=== PATIENT | female | born 1985 | race Hispanic/Latino ===

== ENCOUNTER 2018-06-23 08:38 | Emergency (ER) | payer OTHER ==
[2018-06-23 08:55] VITALS: RESP 16
[2018-06-23 09:36] LABS: SQUAMOUS EPITHIAL 8 /hpf (0-5); URINE BILIRUBIN NEGATIVE (NEGATIVE); URINE BLOOD NEGATIVE (NEGATIVE); URINE CLARITY CLOUDY (Clear); URINE COLOR YELLOW (YELLOW); URINE GLUCOSE (UA) NEG (Normal); URINE LEUKOCYTE ESTERASE LARGE Leu/uL (Negative); URINE PROTEIN NEGATIVE (NEGATIVE)
[2018-06-23 09:38] LABS: BASO % 0.6 % (0.0-2.0); EOS # 0.1 K/uL (0.0-0.7); EOS % 1.5 % (0.0-4.0); HEMOGLOBIN 12.2 g/dL (12.0-16.0); LYMPH # 2.3 K/uL (1.0-4.3); MEAN CELL VOLUME 90.5 fl (81.0-99.0); MEAN CORPUSCULAR HEMOGLOBIN 31.3 pg (27.0-31.0); MEAN CORPUSCULAR HGB CONC 34.5 g/dL (33.0-37.0); MEAN PLATELET VOLUME 7.8 fl (7.2-11.7); MONO # 0.5 K/uL (0.0-0.8); MONO % 6.9 % (0.0-10.0); NEUT # 3.8 K/uL (1.8-7.0); NRBC % 0.1 % (0.0-0.0); RBC 3.9 Mil/uL (3.80-5.20); RED CELL DISTRIBUTION WIDTH 13.3 % (11.5-14.5); WHITE BLOOD COUNT 6.7 K/uL (4.8-10.8)
[2018-06-23 09:45] LABS: BLOOD UREA NITROGEN 15 mg/dl (7-17); CALCIUM 9.4 mg/dL (8.4-10.2); GFR AFRICAN-AMERICAN > 60; GFR NON-AFRICAN AMERICAN > 60
--- NOTE | 2018-06-23 09:51 | ED PDOC ---
HPI: Chest Pain Time Seen by Provider: 06/23/18 09:11 Chief Complaint (Nursing): Chest Pain Chief Complaint (Provider): Chest pain History Per: Patient History/Exam Limitations: no limitations Onset/Duration Of Symptoms: Days (1) Current Symptoms Are (Timing): Constant Quality: Aching, "Pain". denies: Sharp Associated Symptoms: denies: Nausea, Dyspnea, Diaphoresis, Syncope Additional History Per: Patient Additional Complaint(s): 33yo female, history of anxiety, current smoker, comes to ER for evaluation of left lower anterior chest pain x 1 day. She states the pain is constant but changes in intensity ranging from mild to painful. Patient reports the pain is worsened with stress and feels as if it is related to her anxiety. She states 2 days ago, she had a bad migraine headache and associated nausea, vomiting and was "stressed" regarding her workload; she reports the chest pain started after the migraine and stress. Otherwise, she denies any shortness of breath, abdominal pain, weakness, headache and offers no additional medical complaints. - Risk Factors PE Risk Factors: Neg: Decreased Mobilty /Activity, Past Medical History Reviewed: Historical Data, Nursing Documentation, Vital Signs Vital Signs: Last Vital Signs Temp 98.0 F 06/23/18 08:51 Pulse 72 06/23/18 09:11 Resp 16 06/23/18 08:51 BP 135/81 06/23/18 09:11 Pulse Ox 100 06/23/18 09:56 - Medical History PMH: Anxiety, Migraine Other PMH: history of morbid obesity - Surgical History Other surgeries: lap-band surgery, gastric bypass - Family History Family History: States: Hypertension Denies: CAD, Diabetes - Social History Current smoker - smoking cessation education provided: Yes Drugs: Denies - Home Medications Home Medications: Ambulatory Orders Medication Instructions Recorded Albuterol 0.083% [Albuterol 0.083% 3 ml IH QID PRN #50 neb 04/02/18 Inhal Rena (2.5 mg/3 ml) UD] Albuterol HFA [Ventolin HFA 90 2 puff IH [id number] PRN #1 in 04/02/18 mcg/actuation (8 g)] Benzonatate [Tessalon Perles] 200 mg PO TID PRN #30 sgl 04/02/18 Loratadine [Claritin] 10 mg PO DAILY PRN #14 tab 04/02/18 Prednisone 50 mg PO DAILY #4 tablet 04/02/18 - Allergies Allergies/Adverse Reactions: Allergies Allergy/AdvReac Type Severity Reaction Status Date / Time Mag Hola Allergy ANAPHYLAXIS Uncoded 04/02/18 09:48 Review of Systems ROS Statement: Except As Marked, All Systems Reviewed And Found Negative Constitutional: Negative for: Fever, Chills Cardiovascular: Positive for: Chest Pain Respiratory: Negative for: Shortness of Breath Gastrointestinal: Negative for: Nausea, Vomiting, Abdominal Pain Neurological: Negative for: Weakness, Headache Physical Exam - Reviewed Nursing Documentation Reviewed: Yes Vital Signs Reviewed: Yes - Physical Exam Appears: Positive for: Non-toxic, No Acute Distress Head Exam: Positive for: ATRAUMATIC, NORMAL INSPECTION, NORMOCEPHALIC Skin: Positive for: Normal Color Eye Exam: Positive for: Normal appearance Neck: Positive for: Painless ROM, Supple Cardiovascular/Chest: Positive for: Regular Rate, Rhythm, Chest Non Tender. Negative for: Tachycardia Respiratory: Positive for: Normal Breath Sounds. Negative for: Respiratory Distress Pulses-Dorsalis Pedis (L): 2+ Pulses-Dorsalis Pedis (R): 2+ Gastrointestinal/Abdominal: Positive for: Normal Exam, Soft. Negative for: Tenderness Back: Positive for: Normal Inspection Extremity: Positive for: Normal ROM. Negative for: Pedal Edema, Calf Tenderness Neurologic/Psych: Positive for: Alert, Oriented. Negative for: Motor/Sensory Deficits - Laboratory Results Result Diagrams: 06/23/18 09:27 06/23/18 09:27 - ECG O2 Sat by Pulse Oximetry: 100 (RA) Pulse Ox Interpretation: Normal Medical Decision Making Medical Decision Making: Impression: Atypical chest pain Plan: -- Labs -- EKG Patient declined a Chest x-ray. Patient also has a scheduled real estate executive assistant appointment at 2PM today. Scribe Attestation: Documented by Miriam Bañuelos, acting as a scribe for Maria Elena Bueno MD. Provider Scribe Attestation: All medical record entries made by the Scribe were at my direction and personally dictated by me. I have reviewed the chart and agree that the record accurately reflects my personal performance of the history, physical exam, medical decision making, and the department course for this patient. I have also personally directed, reviewed, and agree with the discharge instructions and disposition. Labs reviewed. No acute pathology/. EKG normal. Causes of CP d/w patient (ACS, pneumonia, musculoskeletal, injury, stress, anxiety, etc). Patient has a cardiology appointment this afternoon. Will discharge Disposition - Clinical Impression Clinical Impression: Atypical chest pain - Patient ED Disposition Is Patient to be Admitted: No Doctor Will See Patient In The: Office Counseled Patient/Family Regarding: Diagnosis, Need For Followup - Disposition Disposition: Routine/Home Disposition Time: 10:30 Condition: STABLE Instructions: Chest Pain, Chest Pain That Is Not Caused by the Heart (DC) Forms: [employer] (Japanese), [facility] ED School/Work Excuse - POA Present On Arrival: None
[2018-06-23 11:27] VITALS: BP 108/67; PULSE 61; TEMP 98.3; O2SAT 99
--- NOTE | 2018-06-23 12:52 | CARD ---
APPROVED REPORT Date of service: 06/23/2018 EKG Measurement Heart [id number] <Conclusion> Normal sinus rhythm Normal ECG
== END 2018-06-23 11:28 | disposition home or self-care (01) ==
LOC: H.ER 08:38
DX: R07.89 Other chest pain (principal); F41.9 Anxiety disorder, unspecified; F17.200 Nicotine dependence, unspecified, uncomplicated; Z98.84 Bariatric surgery status